=== PATIENT | female | born 1955 | race Caucasian/White ===

== ENCOUNTER 2017-11-19 21:49 | Inpatient (IN) | payer MEDICAID ==
[~2017-11-19] VITALS: Ht 160 cm; Wt 60.1 kg
[~2017-11-19 21:49] MED LIST: DUONI NEB; NORC7.5T PO; RANI1TAB7 PO; SPIRCAP INH; SYMATAB PO; TRAZ100 PO; XANA0.5T PO
[2017-11-20] MEDS ORDERED: ALUMINUM/MAGNESIUM/SIMETH 30 ML CUP PO PRN (00:45)
[2017-11-20] MEDS ORDERED: ACETAMINOPHEN 325 MG TAB PO PRN (00:45)
[2017-11-20] MEDS ORDERED: MAGNESIUM HYDROXIDE SUSP 30 ML CUP PO PRN (00:45)
[2017-11-20 01:44] VITALS: BP 116/56; PULSE 82; RESP 16; TEMP 98.2; O2SAT 97
[2017-11-20 06:15] VITALS: BP 120/59; PULSE 76; RESP 16; TEMP 97.7; O2SAT 96
[2017-11-20] MEDS ORDERED: NICOTINE 21 MG/24 HR PATCH T-DERMAL ONE (14:30)
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
[2017-11-20] MEDS ORDERED: REMOVE OLD NICODERM (NICOTINE) PATCH T-DERMAL ONE (21:00)
== END 2017-11-20 16:50 | disposition home or self-care (01) | DRG 882 ==
LOC: H270 23:30
PROVIDERS: ADMIT Psychiatry & Neurology Psychiatry; ATTEND Psychiatry & Neurology Psychiatry
DX: F43.25 Adjustment disorder with mixed disturbance of emotions and conduct (principal); F17.210 Nicotine dependence, cigarettes, uncomplicated; H91.90 Unspecified hearing loss, unspecified ear